=== PATIENT | male | born 1990 | race Two or more races ===

== ENCOUNTER 2017-05-25 22:27 | Emergency (ER) | payer OTHER ==
[~2017-05-25] VITALS: Ht 160 cm; Wt 77.1 kg
[~2017-05-25 22:27] MED LIST: LEVSIN/SL0.125 MG PO; MIRALAX510 GM PO
[2017-05-25] MEDS ORDERED: AZITHROMYCIN500 MG (22:56)
== END 2017-05-25 23:59 | disposition home or self-care (01) ==
LOC: ER 22:27
DX: H66.3X3 Other chronic suppurative otitis media, bilateral (principal)

== ENCOUNTER 2017-06-19 18:12 | Emergency (ER) | payer OTHER ==
[~2017-06-19] VITALS: Ht 160 cm; Wt 77.1 kg
[~2017-06-19 18:12] MED LIST changes: +AZITHROMYCIN500 MG
== END 2017-06-19 20:10 | disposition home or self-care (01) ==
LOC: ER 18:12
DX: T15.11XA Foreign body in conjunctival sac, right eye, initial encounter (principal)

== ENCOUNTER 2018-11-16 17:34 | Emergency (ER) | payer OTHER ==
[~2018-11-16] VITALS: Ht 162.6 cm; Wt 86.2 kg
== END 2018-11-16 21:59 | disposition home or self-care (01) ==
LOC: ER 17:34
DX: M62.830 Muscle spasm of back (principal)

== ENCOUNTER 2019-03-24 13:33 | Outpatient (CLI) | payer OTHER | END 2019-03-24 13:45 | disposition home or self-care (01) | LOC: SONOGRAMA 13:33 | DX: N50.819 Testicular pain, unspecified (principal) ==

== ENCOUNTER 2021-07-17 22:46 | Emergency (ER) | payer OTHER ==
[~2021-07-17] VITALS: Ht 160 cm; Wt 81.6 kg
[2021-07-18] MEDS ORDERED: PROTONIX40 MG PO (03:29)
[2021-07-18] MEDS ORDERED: ZOFRAN8 MG PO (03:29)
[2021-07-18] MEDS ORDERED: PEPCID40 MG PO (03:29)
== END 2021-07-18 03:34 | disposition home or self-care (01) ==
LOC: ER 22:46
DX: K29.70 Gastritis, unspecified, without bleeding (principal); Z88.8 Allergy status to other drugs, medicaments and biological substances

== ENCOUNTER 2022-01-02 18:09 | Emergency (ER) | payer OTHER ==
[~2022-01-02] VITALS: Ht 160 cm; Wt 81.6 kg
[~2022-01-02 18:09] MED LIST changes: +PEPCID40 MG PO; +PROTONIX40 MG PO; +ZOFRAN8 MG PO
[2022-01-02] MEDS ORDERED: CLINDAMYCIN 300 MG (18:35)
[2022-01-02] MEDS ORDERED: KETOROLAC 10 MG. (18:36)
[2022-01-02] MEDS ORDERED: [UNRECOGNIZED DRUG - CODE] (18:37)
[2022-01-02] MEDS ORDERED: COZAAR50 MG PO (22:21)
== END 2022-01-02 22:36 | disposition home or self-care (01) ==
LOC: ER 18:09
DX: K74.60 Unspecified cirrhosis of liver (principal); I85.10 Secondary esophageal varices without bleeding; Z88.8 Allergy status to other drugs, medicaments and biological substances